=== PATIENT | female | born 1990 | race African-American/Black ===

== ENCOUNTER 2019-04-29 20:33 | Emergency (ER) | payer MEDICAID ==
[~2019-04-29] VITALS: Ht 162.6 cm; Wt 65.0 kg
[2019-04-29] MEDS ORDERED: KETOROLAC 60MG/2ML VIAL IM ONE (21:45)
[2019-04-29] MEDS ORDERED: TRAMADOL 50MG TABLET PO ONE (21:45)
[2019-04-29] MEDS ORDERED: MORPHINE SULFATE 4 MG/ML CPJ (NOT FOR IM USE) IV ONE (23:30)
[2019-04-30 00:33] LABS: CLARITY URINE CLOUDY (CLEAR); COLOR URINE YELLOW (YELLOW); KETONES URINE 1+ (NEGATIVE); LEUKOCYTE ESTERASE URINE NEGATIVE (NEGATIVE); NITRITE URINE NEGATIVE (NEGATIVE); OCCULT BLOOD URINE TRACE (NEGATIVE); PH URINE 5.5 (4.5-8.0); PROTEIN URINE NEGATIVE (NEGATIVE); SPECIFIC GRAVITY URINE 1.025 (1.005-1.030)
[2019-04-30 02:31] VITALS: BP 120/78
== END 2019-04-30 02:32 | disposition home or self-care (01) ==
LOC: ER 20:33
DX: S43.491A Other sprain of right shoulder joint, initial encounter (principal); V43.62XA Car passenger injured in collision with other type car in traffic accident, initial encounter; Y93.89 Activity, other specified; Y92.488 Other paved roadways as the place of occurrence of the external cause
CPT/HCPCS: 73030; 81003; 81025; 96372; 96374; 99284; J1885; J2270

== ENCOUNTER 2022-08-24 13:46 | Emergency (ER) | payer MEDICAID ==
[~2022-08-24] VITALS: Ht 152.4 cm; Wt 49.0 kg
[2022-08-24 13:57] VITALS: BP 112/43
[2022-08-24] MEDS ORDERED: ACETAMINOPHEN 325MG TABLET PO ONE (15:30)
[2022-08-24] MEDS ORDERED: IBUP-2028 MT (16:12)
== END 2022-08-24 14:47 | disposition home or self-care (01) ==
LOC: ER 13:46
DX: S92.415A Nondisplaced fracture of proximal phalanx of left great toe, initial encounter for closed fracture (principal); M79.675 Pain in left toe(s); X58.XXXA Exposure to other specified factors, initial encounter; Y93.89 Activity, other specified; Y92.89 Other specified places as the place of occurrence of the external cause; Y99.8 Other external cause status
CPT/HCPCS: 73660; 99283